=== PATIENT | male | born 1970 | race Caucasian/White ===

== ENCOUNTER 2023-07-29 09:01 | Emergency (ER) | payer BC, SELFPAY ==
[2023-07-29 09:06] VITALS: BP 146/96; PULSE 87; TEMP 36.8; O2SAT 91; BMI 30.5
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
[2023-07-29 14:50] VITALS: BP 137/85; PULSE 78; O2SAT 98
== END 2023-07-29 15:31 | disposition home or self-care (01) ==
PROVIDERS: Emergency Provider Emergency Medicine Emergency Medical Services; PCP Internal Medicine
DX: S82.145A Nondisplaced bicondylar fracture of left tibia, initial encounter for closed fracture (principal); M17.12 Unilateral primary osteoarthritis, left knee; S83.91XA Sprain of unspecified site of right knee, initial encounter; V86.55XA Driver of 3- or 4- wheeled all-terrain vehicle (ATV) injured in nontraffic accident, initial encounter
CPT/HCPCS: 73562; 73700; 99283

== ENCOUNTER 2023-08-28 09:34 | Outpatient (OUT) | payer BC, SELFPAY ==
--- NOTE | 2023-08-28 | XR_ITS ---
The [address] [address] Patient Name: JAYNA TRINH MRN: [id number] date: 1970 Sex: M Assigned Patient Location: Current Patient Location: Accession/Order Number: [id number] Exam Date: 08/28/2023 09:34 Report Date: 08/28/2023 14:37 At the request of: JOSÉ MIGUEL BULLARD Procedure: XR knee LT 2V EXAM: Left knee HISTORY: . LEFT KNEE PAIN . COMPARISON: None. TECHNIQUE: 2 views FINDINGS: There is mild narrowing of the medial joint compartment. There are hypertrophic spurs noted involving the medial joint compartment. No fracture or dislocation is noted. Small spurs are noted involving the patellofemoral joint. There is slight fullness in the suprapatellar region. XR/XR knee LT 2V IMPRESSION: 1. Mild to moderate arthritic changes involving the left knee particularly the medial joint compartment. 2. Small suprapatellar joint effusion. Electronically authenticated by: SHREYAS BOUCHER Date: 08/28/2023 14:37
== END 2023-08-28 09:35 | disposition home or self-care (01) ==
LOC: EC 09:34
PROVIDERS: PCP Internal Medicine; Visit Provider Orthopaedic Surgery
DX: S82.142A Displaced bicondylar fracture of left tibia, initial encounter for closed fracture (principal); M25.462 Effusion, left knee
CPT/HCPCS: 73560